=== PATIENT | female | born 1985 | race Two or more races ===

== ENCOUNTER 2017-09-17 12:14 | Inpatient (IN) | payer SELFPAY ==
[2017-09-17 14:30] LABS: ADD MAN DIFF? NO
[2017-09-17 14:32] LABS: BASO % 0 % (0-3); EOS # 0.1 x10^3/uL (0.0-0.7); EOS % 2 % (0-3); HEMATOCRIT 40.7 % (36.0-47.0); LYMPH # 2.2 x10^3/uL (1.0-4.8); LYMPH % 31 % (24-48); MEAN CORPUSCULAR HEMOGLOBIN 30 pg (25-35); MEAN CORPUSCULAR HGB CONC 34 g/dL (31-37); MEAN CORPUSCULAR VOLUME 88 fL (79-100); MONO # 0.5 x10^3/uL (0.0-1.1); MONO % 7 % (0-9); NEUT # 4.2 x10^3uL (1.8-7.7); NEUT % 60 % (31-73); PLATELET COUNT 320 x10^3/uL (140-400); RED BLOOD COUNT 4.62 x10^6/uL (3.50-5.40); RED CELL DISTRIBUTION WIDTH 13.2 % (11.5-14.5); WHITE BLOOD COUNT 7.1 x10^3/uL (4.0-11.0)
[2017-09-17 14:43] LABS: INR 1.1 (0.8-1.1); PARTIAL THROMBOPLASTIN TIME 27 SEC (24-38); PROTHROMBIN TIME PATIENT 13.2 SEC (11.7-14.0)
[2017-09-17 14:44] LABS: ANION GAP 8 (6-14); BLOOD UREA NITROGEN 8 mg/dL (7-20); BUN/CREATININE RATIO 11 (6-20); CARBON DIOXIDE 26 mmol/L (21-32); CHLORIDE 107 mmol/L (98-107); CREATININE 0.7 mg/dL (0.6-1.0); GLUCOSE 82 mg/dL (70-99); POTASSIUM 3.6 mmol/L (3.5-5.1); SODIUM 141 mmol/L (136-145)
[2017-09-17] MEDS ORDERED: ACETAMINOPHEN 650 MG SUPP.RECT. PR (14:45)
[2017-09-17] MEDS ORDERED: ASPIRIN 300 MG SUPP.RECT PR (14:45)
[2017-09-17] MEDS ORDERED: ACETAMINOPHEN 325 MG TABLET. PO ×2 (14:45→15:15)
[2017-09-17 14:50] LABS: ALBUMIN 3.8 g/dL (3.4-5.0); ALBUMIN/GLOBULIN RATIO 0.9 (1.0-1.7); ALK PHOS 81 U/L (46-116); ALT (SGPT) 20 U/L (14-59); AST (SGOT) 18 U/L (15-37); TOTAL BILIRUBIN 0.6 mg/dL (0.2-1.0); TOTAL PROTEIN 7.9 g/dL (6.4-8.2)
[2017-09-17 14:53] LABS: TROPONINI < 0.017 ng/mL (0.000-0.055)
[2017-09-17] MEDS ORDERED: MORPHINE SULFATE 2 MG/ML DISP.SYRIN. IV (15:15)
[2017-09-17] MEDS ORDERED: ONDANSETRON PF 4 MG/2 ML VIAL. IV (15:15)
[2017-09-17 15:35] LABS: BILIRUBIN,URINE NEGATIVE (NEG); CLARITY,URINE CLEAR; COLOR,URINE YELLOW; GLUCOSE,URINE NEGATIVE (NEG); NITRITE,URINE NEGATIVE (NEG); PH,URINE 5.5; PROTEIN,URINE NEGATIVE (NEG-TRACE); UROBILINOGEN,URINE 0.2 mg/dL (0.2 mg/dL)
[2017-09-17 15:35] LABS: URINE HCG POC HCG NEGATIVE (Negative)
[2017-09-17 15:44] LABS: BACTERIA,URINE FEW /HPF (0-FEW); RBC,URINE 0 /HPF (0-2); SQUAMOUS EPITHELIAL CELL,UR MOD /LPF
[2017-09-17] MEDS: IOHEXOL 300 MG/ML 100ML VIAL. IV (16:14)
[2017-09-17] MEDS ORDERED: CONTRAST GIVEN MC (16:15)
[2017-09-17] MEDS: IV NORMAL SALINE 1000ML BAG 1,000 ML IV (17:20)
[2017-09-17 21:22] LABS: TROPONINI < 0.017 ng/mL (0.000-0.055)
[2017-09-18] MEDS: IV NORMAL SALINE 1000ML BAG 1,000 ML IV (03:00)
[2017-09-18 05:27] LABS: ADD MAN DIFF? NO
[2017-09-18 05:38] LABS: BASO % 1 % (0-3); EOS # 0.1 x10^3/uL (0.0-0.7); EOS % 2 % (0-3); HEMATOCRIT 39.1 % (36.0-47.0); HEMOGLOBIN 13.1 g/dL (12.0-15.5); LYMPH # 1.9 x10^3/uL (1.0-4.8); LYMPH % 26 % (24-48); MEAN CORPUSCULAR HEMOGLOBIN 30 pg (25-35); MEAN CORPUSCULAR HGB CONC 34 g/dL (31-37); MEAN CORPUSCULAR VOLUME 90 fL (79-100); MONO # 0.5 x10^3/uL (0.0-1.1); MONO % 6 % (0-9); NEUT % 66 % (31-73); PLATELET COUNT 299 x10^3/uL (140-400); RED BLOOD COUNT 4.35 x10^6/uL (3.50-5.40); RED CELL DISTRIBUTION WIDTH 13.6 % (11.5-14.5); WHITE BLOOD COUNT 7.5 x10^3/uL (4.0-11.0)
[2017-09-18] MEDS: ASPIRIN ENTERIC COATED 325 MG TABLET.DR. PO (08:58)
[2017-09-18] MEDS: predniSONE 10 MG TABLET PO (09:30)
[2017-09-18 11:39] LABS: ALBUMIN 2.9 g/dL (3.4-5.0); ALBUMIN/GLOBULIN RATIO 0.8 (1.0-1.7); ALK PHOS 63 U/L (46-116); ALT (SGPT) 15 U/L (14-59); ANION GAP 11 (6-14); AST (SGOT) 14 U/L (15-37); BLOOD UREA NITROGEN 7 mg/dL (7-20); BUN/CREATININE RATIO 10 (6-20); CALCIUM 7.9 mg/dL (8.5-10.1); CARBON DIOXIDE 23 mmol/L (21-32); CHLORIDE 109 mmol/L (98-107); CHOLESTEROL 165 mg/dL (0-200); CREATININE 0.7 mg/dL (0.6-1.0); GLUCOSE 134 mg/dL (70-99); HDLC 40 mg/dL (40-60); LDLC 114 mg/dL (0-100); NON-HDL CHOLESTEROL 125 mg/dL (0-129); POTASSIUM 3.7 mmol/L (3.5-5.1); SODIUM 143 mmol/L (136-145); TOTAL BILIRUBIN 0.5 mg/dL (0.2-1.0); TOTAL PROTEIN 6.7 g/dL (6.4-8.2); TRIGLYCERIDES 55 mg/dL (0-150); VLDLC 11 mg/dL (0-40)
[2017-09-18 11:46] LABS: CHOLESTEROL/HDL RATIO 4.1
[2017-09-18] MEDS: carBAMazepine 200 MG TABLET PO (13:01)
[2017-09-19] MEDS ORDERED: predniSONE 10 MG TABLET PO (09:00)
[2017-09-20] MEDS ORDERED: predniSONE 20 MG TABLET PO (09:00)
[2017-09-21] MEDS ORDERED: predniSONE 10 MG TABLET PO (09:00)
== END 2017-09-18 17:05 | disposition home or self-care (01) | DRG 74 ==
LOC: ER 12:14 → 6 SOUTH 14:51
DX: G51.0 Bell's palsy (principal); F41.9 Anxiety disorder, unspecified; G40.909 Epilepsy, unspecified, not intractable, without status epilepticus; H53.2 Diplopia; Q76.5 Cervical rib
CPT/HCPCS: 36415; 70496; 70498; 70551; 71045; 80053; 80061; 81001; 81025; 84484; 85025; 85610; 85730; 92610-GN; 93005; 97161-GP; 97165-GO; 99285; 99285-25; C8929; J7030; J7512; Q9967